=== PATIENT | female | born 1945 | race Caucasian/White ===

== ENCOUNTER 2016-09-03 17:42 | Emergency (ER) | payer OTHER ==
--- NOTE | 2016-09-03 18:27 | ED NURSING NOTES ---
Clinical Report - Nurses [facility] [place] [address] 09/03/2016 17:46 Patient: DEBBIE JO TRIAGE Triage time 18:18. Acuity: LEVEL 4. Chief Complaint: (Left foot erythema on the dorsal and medial aspect, edema x3 days. Mild errythema on the dorsum of the right foot.). SEPSIS SCREEN: Sepsis Screen. Negative (no infection suspected/documented). JOHN COMA SCORE: John Coma Scale: 15- eyes open spontaneously (4); best verbal response- oriented x 4 (5); best motor response- obeys commands (6). --18:31 Josué Mahan R.N. 18:19 09/03/16. BP: 183/90 (regular adult cuff) taken on the left arm, while sitting. HR: 76. RR: 20. O2 saturation: 99% on room air. Temp: 98.3 F (oral). --18:31 Josué Mahan R.N. Weight: 71.6 kg stated. Height/Length: 69 inches Per Patient. BMI: 23.3. --18:27 Josué Mahan R.N. Medications None. --18:22 Josué Mahan R.N. Allergies Sulfa Antibiotics. --18:22 Josué Mahan R.N. History Arrived by private vehicle. Historian: patient. SOCIAL HX: Never smoker. No alcohol use or drug use. ABUSE ASSESSMENT: No report of abuse. --18:31 Josué Mahan R.N. PROBLEMS: Edema. Asthma. Hypertension. Cellulitis. --18:27 Josué Mahan R.N. ADDITIONAL SURGERIES: Appendectomy. . --18:27 Josué Mahan R.N. Interventions ID band on patient. To treatment room. --18:31 Josué Mahan R.N. PHYSICAL ASSESSMENT late entry -18:25. Ambulatory to room. GENERAL / NEURO / PSYCH: Alert. Oriented X 4. Appears in no acute distress. HEENT: Pupils equal, round and reactive to light. No facial asymmetry noted. Mucous membranes are pink. RESPIRATORY: Respirations not labored. Chest nontender. Breath sounds within normal limits. CVS: Capillary refill less than 2 seconds. Pulses within normal limits. GI / : Abdomen soft and nontender and normal bowel sounds. SKIN: Skin is warm and dry. Normal skin turgor. Swelling (3+ bilat LE edema (knees to the feet)). Erythema (left foot and mild erythema on the right foot.). --18:38 Josué Mahan R.N. NURSING PROGRESS NOTES late entry -18:25. Reassurance given. Two patient identifiers checked. Call light placed in reach. Bed placed in lowest position. Brakes of bed on. Patient ready for evaluation- chart flagged. --18:39 Josué Mahan R.N. 18:42 09/03/2016 Keflex (Cephalexin) PO Capsules 500 mg given. Allergies verified and confirmed 5 rights. --18:47 Josué Mahan R.N. DISPOSITION / DISCHARGE Departure time: 184. Condition at departure: unchanged and stable. No learning barriers present. Discharge instructions provided and reviewed with the patient. Reviewed medication(s). Reviewed referrals. Patient verbalized understanding. Written instructions provided in Portuguese. The patient was discharged by the physician export sales assistant. She was discharged home. She left the Emergency Department ambulatory and via private vehicle. Patient driving. --18:48 Josué Mahan R.N. 18:45 09/03/16. BP: 173/82. --18:48 Josué Mahan R.N. Locked/Released at 09/04/2016 15:01 by Josué Mahan R.N.
--- NOTE | 2016-09-03 18:27 | ED CLINICAL REPORT ---
Clinical Report - Physicians/Mid Levels [facility] [address] [place] [address] 09/03/2016 17:46 Patient: DEBBIE JO Time Seen: 18:20 Sep 03 2016. Arrived- By private vehicle. Historian- patient. HISTORY OF PRESENT ILLNESS Chief Complaint: SKIN RASH. This started 3 days and is still present. It is described as painful. It has been located on the right lower extremity and left lower extremity. (pains of the left lower extremity with a rash over the last 2-3 days. Patient denies any direct trauma, however has better. A lot more over the last 3 days, moving. History of similar, with prior cellulitis. Patient moving from a nearby town.). REVIEW OF SYSTEMS The patient has had fever. No cough, headache, abdominal pain or difficulty with urination. All systems otherwise negative, except as recorded above. SOCIAL HISTORY Never smoker. No alcohol use or drug use. PHYSICAL EXAM Appearance: Alert. No acute distress. CVS: Normal heart rate and rhythm. Heart sounds normal. Respiratory: No respiratory distress. Breath sounds normal. Skin: Skin warm. Cellulitis (4 by 5 area of erythema mid foot dorsal surface, no fluctulance, small area of erythema 1 by 1 cm of right drosal foot, no fluctulance, no lymphagetic streaking). There is warmth, tenderness and inflammation. No lymphangitis or induration. Extremities: No lower extremity edema. No calf tenderness. (good pedal pulse). PROGRESS AND PROCEDURES Course of Care: afebrile patient, with no comorbidities, with very euvolemic nature. Was dorsal foot erythema, with no calf pain or tenderness, has been moving recently from a nearby area. Patient is afebrile, normal cardiac, did not suspect any septic origin. No trauma history. Patient has been ambulatory. Stable. We'll cover with Keflex. No history of MRSA. Patient is stable. Symptoms better. Patient/family counseled. Disposition: Discharged. Condition: good. CLINICAL IMPRESSION Cellulitis of the right foot, left ankle and left foot. INSTRUCTIONS (elevate feet take tylneol). Warnings: Further evaluation is necessary. Prescription Medications: Keflex 500 mg: take 1 capsule orally every 8 hours for 10 days. No refill. Substitution is permissible. Follow-up with: Michael Garcia MD, [facility], , [facility], [address] [place] [address] Follow up. Call for an appointment. (Electronically signed by Angella Yao P.A.-C 09/03/2016 18:35)
--- NOTE | 2016-09-03 18:27 | ED ORDER SUMMARY ---
..... Patient: DEBBIE JO OrderSheet [facility] VisitID: [id number] [address] [place] [address] 71y, F Registration Date/Time: 09/03/2016 ORDER SHEET Weight: 71.6 kg (stated) Allergies: Sulfa Antibiotics GENERAL ORDERS: MEDICATION ORDERS: Keflex PO 500 mg (NOW) (18:27 09/03/2016 Ness Herrera) (18:47 Fareed Salazar) IV FLUIDS: ORDER SHEET NOTES: [Electronically signed by Angella Yao P.A.-C (18:35 09/03/2016)] [Electronically signed by Josué Mahan R.N. (15:01 09/04/2016)] [Electronically locked/signed by Josué Mahan R.N. (15:09/04/2016)]
--- NOTE | 2016-09-03 18:27 | ED ORDER SUMMARY ---
..... Patient: DEBBIE JO OrderSheet [facility] VisitID: [id number] [address] [place] [address] 71y, F Registration Date/Time: 09/03/2016 ORDER SHEET Weight: 71.6 kg (stated) Allergies: Sulfa Antibiotics GENERAL ORDERS: MEDICATION ORDERS: Keflex PO 500 mg (NOW) (18:27 09/03/2016 Ness Herrera) (18:47 Fareed Salazar) IV FLUIDS: ORDER SHEET NOTES: [Electronically signed by Angella Yao P.A.-C (18:35 09/03/2016)] [Electronically signed by Josué Mahan R.N. (15:01 09/04/2016)] [Electronically locked/signed by Josué Mahan R.N. (15:09/04/2016)]
--- NOTE | 2016-09-03 18:27 | ED NURSING NOTES ---
Clinical Report - Nurses [facility] [place] [address] 09/03/2016 17:46 Patient: DEBBIE JO TRIAGE Triage time 18:18. Acuity: LEVEL 4. Chief Complaint: (Left foot erythema on the dorsal and medial aspect, edema x3 days. Mild errythema on the dorsum of the right foot.). SEPSIS SCREEN: Sepsis Screen. Negative (no infection suspected/documented). JOHN COMA SCORE: John Coma Scale: 15- eyes open spontaneously (4); best verbal response- oriented x 4 (5); best motor response- obeys commands (6). --18:31 Josué Mahan R.N. 18:19 09/03/16. BP: 183/90 (regular adult cuff) taken on the left arm, while sitting. HR: 76. RR: 20. O2 saturation: 99% on room air. Temp: 98.3 F (oral). --18:31 Josué Mahan R.N. Weight: 71.6 kg stated. Height/Length: 69 inches Per Patient. BMI: 23.3. --18:27 Josué Mahan R.N. Medications None. --18:22 Josué Mahan R.N. Allergies Sulfa Antibiotics. --18:22 Josué Mahan R.N. History Arrived by private vehicle. Historian: patient. SOCIAL HX: Never smoker. No alcohol use or drug use. ABUSE ASSESSMENT: No report of abuse. --18:31 Josué Mahan R.N. PROBLEMS: Edema. Asthma. Hypertension. Cellulitis. --18:27 Josué Mahan R.N. ADDITIONAL SURGERIES: Appendectomy. . --18:27 Josué Mahan R.N. Interventions ID band on patient. To treatment room. --18:31 Josué Mahan R.N. PHYSICAL ASSESSMENT late entry -18:25. Ambulatory to room. GENERAL / NEURO / PSYCH: Alert. Oriented X 4. Appears in no acute distress. HEENT: Pupils equal, round and reactive to light. No facial asymmetry noted. Mucous membranes are pink. RESPIRATORY: Respirations not labored. Chest nontender. Breath sounds within normal limits. CVS: Capillary refill less than 2 seconds. Pulses within normal limits. GI / : Abdomen soft and nontender and normal bowel sounds. SKIN: Skin is warm and dry. Normal skin turgor. Swelling (3+ bilat LE edema (knees to the feet)). Erythema (left foot and mild erythema on the right foot.). --18:38 Josué Mahan R.N. NURSING PROGRESS NOTES late entry -18:25. Reassurance given. Two patient identifiers checked. Call light placed in reach. Bed placed in lowest position. Brakes of bed on. Patient ready for evaluation- chart flagged. --18:39 Josué Mahan R.N. 18:42 09/03/2016 Keflex (Cephalexin) PO Capsules 500 mg given. Allergies verified and confirmed 5 rights. --18:47 Josué Mahan R.N. DISPOSITION / DISCHARGE Departure time: 184. Condition at departure: unchanged and stable. No learning barriers present. Discharge instructions provided and reviewed with the patient. Reviewed medication(s). Reviewed referrals. Patient verbalized understanding. Written instructions provided in Ukrainian. The patient was discharged by the physician insurance assistant. She was discharged home. She left the Emergency Department ambulatory and via private vehicle. Patient driving. --18:48 Josué Mahan R.N. 18:45 09/03/16. BP: 173/82. --18:48 Josué Mahan R.N. Locked/Released at 09/04/2016 15:01 by Josué Mahan R.N.
--- NOTE | 2016-09-03 18:27 | ED CLINICAL REPORT ---
Clinical Report - Physicians/Mid Levels [facility] [address] [place] [address] 09/03/2016 17:46 Patient: DEBBIE JO Time Seen: 18:20 Sep 03 2016. Arrived- By private vehicle. Historian- patient. HISTORY OF PRESENT ILLNESS Chief Complaint: SKIN RASH. This started 3 days and is still present. It is described as painful. It has been located on the right lower extremity and left lower extremity. (pains of the left lower extremity with a rash over the last 2-3 days. Patient denies any direct trauma, however has better. A lot more over the last 3 days, moving. History of similar, with prior cellulitis. Patient moving from a nearby town.). REVIEW OF SYSTEMS The patient has had fever. No cough, headache, abdominal pain or difficulty with urination. All systems otherwise negative, except as recorded above. SOCIAL HISTORY Never smoker. No alcohol use or drug use. PHYSICAL EXAM Appearance: Alert. No acute distress. CVS: Normal heart rate and rhythm. Heart sounds normal. Respiratory: No respiratory distress. Breath sounds normal. Skin: Skin warm. Cellulitis (4 by 5 area of erythema mid foot dorsal surface, no fluctulance, small area of erythema 1 by 1 cm of right drosal foot, no fluctulance, no lymphagetic streaking). There is warmth, tenderness and inflammation. No lymphangitis or induration. Extremities: No lower extremity edema. No calf tenderness. (good pedal pulse). PROGRESS AND PROCEDURES Course of Care: afebrile patient, with no comorbidities, with very euvolemic nature. Was dorsal foot erythema, with no calf pain or tenderness, has been moving recently from a nearby area. Patient is afebrile, normal cardiac, did not suspect any septic origin. No trauma history. Patient has been ambulatory. Stable. We'll cover with Keflex. No history of MRSA. Patient is stable. Symptoms better. Patient/family counseled. Disposition: Discharged. Condition: good. CLINICAL IMPRESSION Cellulitis of the right foot, left ankle and left foot. INSTRUCTIONS (elevate feet take tylneol). Warnings: Further evaluation is necessary. Prescription Medications: Keflex 500 mg: take 1 capsule orally every 8 hours for 10 days. No refill. Substitution is permissible. Follow-up with: Michael Garcia MD, [facility], , [facility], [address] [place] [address] Follow up. Call for an appointment. (Electronically signed by Angella Yao P.A.-C 09/03/2016 18:35)
--- NOTE | 2016-09-04 15:02 | ED DISCHARGE INSTRUCTIONS ---
Patient: DEBBIE JO General Instructions [facility] VisitID: [id number] [place] [address] 71y, F Registration Date/Time: 09/03/2016 Cellulitis of the right foot, left ankle and left foot. INSTRUCTIONS (elevate feet take tylneol). Warnings: Further evaluation is necessary. Prescription Medications: Keflex 500 mg: take 1 capsule orally every 8 hours for 10 days. No refill. Substitution is permissible. Follow-up with: Michael Garcia MD, [facility], , [facility], [address] [place] [address] Follow up. Call for an appointment. ADDITIONAL INFORMATION Cellulitis You have an infection of the skin known as cellulitis. This usually starts with a scrape, cut, insect bite, blister or other opening in the skin which becomes infected. This is a serious condition. It must be watched closely to be sure the infection is not spreading. With antibiotic treatment, the size of the red area will gradually shrink in size until the skin returns to normal. This will take 7-10 days. The red area should never increase in size once the antibiotic medicine has been started. Occasionally, an infection will be resistant to one antibiotic and another one will have to be used. Home Care: 1) Limit the use of the affected part, since excess movement can cause the infection to spread. 2) If the infection is on your leg, walk as little as possible during the first few days of the treatment. Keep your leg elevated while sitting. This will reduce swelling. 3) Take all of the antibiotic medicine exactly as directed until it is gone. Be careful not to miss any doses, especially during the first seven days. Follow Up with your doctor or this facility as directed. Check the infected area daily for the warning signs listed below. Get Prompt Medical Attention if any of the following occur: -- Spreading area of redness -- Increasing swelling or pain -- Appearance of pus or drainage -- Fever over 100.4 F (38.0 C) oral, or over 101.4 F (38.6 C) rectal, after two days on antibiotics Cephalexin Monohydrate Oral tablet What is this medicine? CEPHALEXIN (sef a EDU in) is a cephalosporin antibiotic. It is used to treat certain kinds of bacterial infections It will not work for colds, flu, or other viral infections. How should I use this medicine? Take this medicine by mouth with a full glass of water. Follow the directions on the prescription label. This medicine can be taken with or without food. Take your medicine at regular intervals. Do not take your medicine more often than directed. Take all of your medicine as directed even if you think you are better. Do not skip doses or stop your medicine early. Talk to your after school tutor regarding the use of this medicine in children. While this drug may be prescribed for selected conditions, precautions do apply. What side effects may I notice from receiving this medicine? Side effects that you should report to your doctor or health regular senior care provider as soon as possible: allergic reactions like skin rash, itching or hives, swelling of the face, lips, or tongue breathing problems pain or trouble passing urine redness, blistering, peeling or loosening of the skin, including inside the mouth severe or watery diarrhea unusually weak or tired yellowing of the eyes, skin Side effects that usually do not require medical attention (report to your doctor or health regular senior care provider if they continue or are bothersome): gas or heartburn genital or anal irritation headache joint or muscle pain nausea, vomiting What may interact with this medicine? probenecid some other antibiotics What if I miss a dose? If you miss a dose, take it as soon as you can. If it is almost time for your next dose, take only that dose. Do not take double or extra doses. There should be at least 4 to 6 hours between doses. Where should I keep my medicine? Keep out of the reach of children. Store at room temperature between 59 and 86 degrees F (15 and 30 degrees C). Throw away any unused medicine after the expiration date. What should I tell my health care provider before I take this medicine? They need to know if you have any of these conditions: kidney disease stomach or intestine problems, especially colitis an unusual or allergic reaction to cephalexin, other cephalosporins, penicillins, other antibiotics, medicines, foods, dyes or preservatives or trying to get breast-feeding What should I watch for while using this medicine? Tell your doctor or health regular senior care provider if your symptoms do not begin to improve in a few days. Do not treat diarrhea with over the counter products. Contact your doctor if you have diarrhea that lasts more than 2 days or if it is severe and watery. If you have diabetes, you may get a false-positive result for sugar in your urine. Check with your doctor or health regular senior care provider. You have been given the following additional information: Cellulitis Cephalexin Monohydrate Oral tablet (Electronically signed by Angella Yao P.A.-C 09/03/2016 18:35)
--- NOTE | 2016-09-04 15:02 | ED DISCHARGE INSTRUCTIONS ---
Patient: DEBBIE JO General Instructions [facility] VisitID: [id number] [place] [address] 71y, F Registration Date/Time: 09/03/2016 Cellulitis of the right foot, left ankle and left foot. INSTRUCTIONS (elevate feet take tylneol). Warnings: Further evaluation is necessary. Prescription Medications: Keflex 500 mg: take 1 capsule orally every 8 hours for 10 days. No refill. Substitution is permissible. Follow-up with: Michael Garcia MD, [facility], , [facility], [address] [place] [address] Follow up. Call for an appointment. ADDITIONAL INFORMATION Cellulitis You have an infection of the skin known as cellulitis. This usually starts with a scrape, cut, insect bite, blister or other opening in the skin which becomes infected. This is a serious condition. It must be watched closely to be sure the infection is not spreading. With antibiotic treatment, the size of the red area will gradually shrink in size until the skin returns to normal. This will take 7-10 days. The red area should never increase in size once the antibiotic medicine has been started. Occasionally, an infection will be resistant to one antibiotic and another one will have to be used. Home Care: 1) Limit the use of the affected part, since excess movement can cause the infection to spread. 2) If the infection is on your leg, walk as little as possible during the first few days of the treatment. Keep your leg elevated while sitting. This will reduce swelling. 3) Take all of the antibiotic medicine exactly as directed until it is gone. Be careful not to miss any doses, especially during the first seven days. Follow Up with your doctor or this facility as directed. Check the infected area daily for the warning signs listed below. Get Prompt Medical Attention if any of the following occur: -- Spreading area of redness -- Increasing swelling or pain -- Appearance of pus or drainage -- Fever over 100.4 F (38.0 C) oral, or over 101.4 F (38.6 C) rectal, after two days on antibiotics Cephalexin Monohydrate Oral tablet What is this medicine? CEPHALEXIN (sef a EDU in) is a cephalosporin antibiotic. It is used to treat certain kinds of bacterial infections It will not work for colds, flu, or other viral infections. How should I use this medicine? Take this medicine by mouth with a full glass of water. Follow the directions on the prescription label. This medicine can be taken with or without food. Take your medicine at regular intervals. Do not take your medicine more often than directed. Take all of your medicine as directed even if you think you are better. Do not skip doses or stop your medicine early. Talk to your lead recoverer regarding the use of this medicine in children. While this drug may be prescribed for selected conditions, precautions do apply. What side effects may I notice from receiving this medicine? Side effects that you should report to your doctor or health vision care associate as soon as possible: allergic reactions like skin rash, itching or hives, swelling of the face, lips, or tongue breathing problems pain or trouble passing urine redness, blistering, peeling or loosening of the skin, including inside the mouth severe or watery diarrhea unusually weak or tired yellowing of the eyes, skin Side effects that usually do not require medical attention (report to your doctor or health vision care associate if they continue or are bothersome): gas or heartburn genital or anal irritation headache joint or muscle pain nausea, vomiting What may interact with this medicine? probenecid some other antibiotics What if I miss a dose? If you miss a dose, take it as soon as you can. If it is almost time for your next dose, take only that dose. Do not take double or extra doses. There should be at least 4 to 6 hours between doses. Where should I keep my medicine? Keep out of the reach of children. Store at room temperature between 59 and 86 degrees F (15 and 30 degrees C). Throw away any unused medicine after the expiration date. What should I tell my health care provider before I take this medicine? They need to know if you have any of these conditions: kidney disease stomach or intestine problems, especially colitis an unusual or allergic reaction to cephalexin, other cephalosporins, penicillins, other antibiotics, medicines, foods, dyes or preservatives or trying to get breast-feeding What should I watch for while using this medicine? Tell your doctor or health vision care associate if your symptoms do not begin to improve in a few days. Do not treat diarrhea with over the counter products. Contact your doctor if you have diarrhea that lasts more than 2 days or if it is severe and watery. If you have diabetes, you may get a false-positive result for sugar in your urine. Check with your doctor or health vision care associate. You have been given the following additional information: Cellulitis Cephalexin Monohydrate Oral tablet (Electronically signed by Angella Yao P.A.-C 09/03/2016 18:35)
--- NOTE | 2016-09-04 15:02 | ED MAR SUMMARY ---
..... Medication Administration Record [facility] [address] [place] [address] Patient: DEBBIE JO Visit ID: [id number] 71y, F Weight: 71.6 kg Height/Length: 69 in BMI: 23.3 ALLERGIES: Sulfa Antibiotics Given 18:42 09/03/2016 Josué Mahan R.N. Medication Administered: KEFLEX [PO] (CEPHALEXIN), Dose: 500 mg Capsules PO. Medication Ordered: Keflex PO 500 mg (NOW).
--- NOTE | 2016-09-04 15:02 | ED MED RECONCILIATION SUMMARY ---
Patient: DEBBIE JO Medication Reconciliation Report [facility] VisitID: [id number] [address] [place] [address] 71y, F Registration Date/Time: 09/03/2016 Weight: 71.6 kg Height/Length: 69 in. BMI: 23.3 ALLERGIES: Sulfa Antibiotics The patient's Home Medications are listed below: NONE. The source(s) of the original Home Medication information: Not obtained. The following Medications were given to the patient in the Emergency Department: Keflex [PO] PO 500 mg, administered: 09/03/2016 6:42:00 PM The following Medications were prescribed to the patient: Keflex 500 mg: take 1 capsule orally every 8 hours for 10 days. No refill. Substitution is permissible. -- Angella Yao P.A.-C
--- NOTE | 2016-09-04 15:02 | ED MED RECONCILIATION SUMMARY ---
Patient: DEBBIE JO Medication Reconciliation Report [facility] VisitID: [id number] [address] [place] [address] 71y, F Registration Date/Time: 09/03/2016 Weight: 71.6 kg Height/Length: 69 in. BMI: 23.3 ALLERGIES: Sulfa Antibiotics The patient's Home Medications are listed below: NONE. The source(s) of the original Home Medication information: Not obtained. The following Medications were given to the patient in the Emergency Department: Keflex [PO] PO 500 mg, administered: 09/03/2016 6:42:00 PM The following Medications were prescribed to the patient: Keflex 500 mg: take 1 capsule orally every 8 hours for 10 days. No refill. Substitution is permissible. -- Angella Yao P.A.-C
--- NOTE | 2016-09-04 15:02 | ED MAR SUMMARY ---
..... Medication Administration Record [facility] [address] [place] [address] Patient: DEBBIE JO Visit ID: [id number] 71y, F Weight: 71.6 kg Height/Length: 69 in BMI: 23.3 ALLERGIES: Sulfa Antibiotics Given 18:42 09/03/2016 Josué Mahan R.N. Medication Administered: KEFLEX [PO] (CEPHALEXIN), Dose: 500 mg Capsules PO. Medication Ordered: Keflex PO 500 mg (NOW).
== END 2016-09-03 18:47 | disposition home or self-care (01) ==
LOC: ED SRH 17:42
DX: L03.115 Cellulitis of right lower limb (principal); L03.116 Cellulitis of left lower limb